=== PATIENT | female | born 1990 | race American Indian/Alaskan Native ===

== ENCOUNTER 2017-02-23 01:44 | Emergency (ER) | payer OTHER ==
[2017-02-23] MEDS ORDERED: TYLENOL PO ONE (05:27)
[2017-02-23 05:32] LABS: Bacteria,Urine 1+ /HPF (Negative); Bilirubin,Urine NEG (Negative); Blood,Urine LG (Negative); Ketones,Urine NEG (Negative); Leukocyte Esterase,Urine LG (Negative); Mucus,Urine FEW /HPF; Nitrite,Urine NEG (Negative); Protein,Urine <15 mg/dL mg/dL (Negative); Urobilinogen,Urine < 2.0 mg/dL (<2.0)
[2017-02-23] MEDS ORDERED: XYLOCAINE 1% MPF 5 mL INFILTRATI ONE (09:17)
[2017-02-23] MEDS ORDERED: ROCEPHIN IM ONE (09:17)
[2017-02-23] MEDS ORDERED: ZITHROMAX PO ONE (09:17)
[2017-02-23 09:18] VITALS: BP 114/75
--- NOTE | 2017-02-23 09:42 | Emergency Department Report ---
Entered by COLIN ASHLEY, acting as scribe for FLIP CALLAHAN PA. ED Abdominal Pain HPI - General Chief Complaint: Abdominal Pain Stated Complaint: PELVIC PAIN Source: patient Mode of arrival: Ambulatory Limitations: No Limitations - History of Present Illness Initial Comments: 26 year old with a PMHx of asthma presents to the ED c/o abdominal pain that began 1 week ago. Patient states that she was called 2 hours [employer] and told that she was exposed to Chlamydia. Rates pain a 7/10 in severity. Associated symptoms include nausea and chills, but she denies vomiting, fever, dysuria, and discharge. LMP 02/23/2017. Complaint: abdominal pain (suprapubic) Onset/Timin -: week(s) Location: suprapubic Radiation: none Migration to: no migration Severity: moderate Severity scale (0 -10): 7 Quality: aching Consistency: constant Improves With: nothing Worsens With: nothing Context: other (exposure to Chlamydia) Associated Symptoms: denies other symptoms, nausea, chills. denies: vomiting, fever, dysuria, other (discharge and bilateral flank pain) - Related Data LMP Date: 02/23/17 LMP (females 10-50): this week Previous Rx's Medication Instructions Recorded Last Taken Type Cyclobenzaprine [Flexeril 10mg] 10 mg PO TID PRN #15 tablet 04/16/15 Unknown Rx Ibuprofen [Motrin] 800 mg PO Q8H PRN #15 tablet 04/16/15 Unknown Rx Ciprofloxacin HCl [Ciprofloxacin 500 mg PO Q12HR #14 tab 02/23/17 Unknown Rx TAB] Allergies Allergy/AdvReac Type Severity Reaction Status Date / Time No Known Allergies Allergy Verified 02/23/17 09:24 ED Review of Systems Comment: All other systems reviewed and negative Constitutional: chills. denies: fever Eyes: denies: eye pain, eye discharge, vision change ENT: denies: ear pain, throat pain Respiratory: denies: cough, shortness of breath, wheezing Cardiovascular: denies: chest pain, palpitations Endocrine: no symptoms reported Gastrointestinal: abdominal pain, nausea. denies: vomiting, diarrhea Genitourinary: denies: dysuria, discharge Musculoskeletal: denies: back pain, joint swelling, arthralgia Skin: denies: rash Neurological: denies: headache, weakness, paresthesias Psychiatric: denies: anxiety, depression Hematological/Lymphatic: denies: easy bleeding, easy bruising ED Past Medical Hx - Past Medical History Previous Medical History?: Yes Hx Asthma: Yes - Surgical History Past Surgical History?: Yes Additional Surgical History: - Social History Smoking Status: Current Every Day Smoker Substance Use Type: None - Medications Home Medications: Home Medications Medication Instructions Recorded Confirmed Last Taken Type Cyclobenzaprine [Flexeril 10mg] 10 mg PO TID PRN #15 tablet 04/16/15 Unknown Rx Ibuprofen [Motrin] 800 mg PO Q8H PRN #15 tablet 04/16/15 Unknown Rx Ciprofloxacin HCl [Ciprofloxacin 500 mg PO Q12HR #14 tab 02/23/17 Unknown Rx TAB] ED Physical Exam - General Limitations: No Limitations General appearance: alert, in no apparent distress - Head Head exam: Present: atraumatic, normocephalic - Eye Eye exam: Present: normal appearance, EOMI Pupils: Present: normal accommodation - ENT ENT exam: Present: normal exam, mucous membranes moist - Neck Neck exam: Present: normal inspection, full ROM - Respiratory Respiratory exam: Present: normal lung sounds bilaterally. Absent: respiratory distress - Cardiovascular Cardiovascular Exam: Present: regular rate, normal rhythm - GI/Abdominal GI/Abdominal exam: Present: soft, tenderness (mild suprapubic tenderness). Absent: distended, guarding, rebound - Extremities Exam Extremities exam: Present: normal inspection, full ROM - Back Exam Back exam: Present: normal inspection, full ROM. Absent: tenderness, CVA tenderness (R), CVA tenderness (L) - Neurological Exam Neurological exam: Present: alert, oriented X3, CN II-XII intact, normal gait - Psychiatric Psychiatric exam: Present: normal affect, normal mood - Skin Skin exam: Present: warm, dry, intact. Absent: rash ED Course Vital Signs 02/23/17 02/23/17 02/23/17 02:14 05:21 09:17 Temperature 99.3 F 98.6 F 98.4 F Pulse Rate 117 H 95 H 85 Respiratory 18 18 18 Rate Blood Pressure 130/79 126/76 Blood Pressure 114/75 [Right] O2 Sat by Pulse 100 100 98 Oximetry ED Medical Decision Making - Medical Decision Making A/P: Cystitis, exposure to STD chlamydia 1-azithromycin, ceftriaxone for empiric treatment of Chlamydia/gonorrhea 2-ciprofloxacin 7 day course for UTI 3-follow up with primary care doctor ED Disposition Clinical Impression: Exposure to STD, Cystitis Disposition: DISCHARGED TO HOME OR SELFCARE Is pt being admited?: No Does the pt Need Aspirin: No Condition: Stable Instructions: Urinary Tract Infection in Women (ED), Chlamydia Infection (ED) Prescriptions: Ciprofloxacin HCl [Ciprofloxacin TAB] 500 mg PO Q12HR #14 tab Referrals: AILIN CROCKETT MD [Staff Physician] - 3-5 Days LISANDRO LOGAN MD [Staff Physician] - 3-5 Days Forms: Accompanied Note, Work/School Release Form(ED) Time of Disposition: 09:27 This documentation as recorded by the DION vega JASMINE,accurately reflects the service I personally performed and the decisions made by ,FLIP CALLAHAN PA.
== END 2017-02-23 10:10 | disposition home or self-care (01) ==
LOC: ED 01:44
DX: N30.90 Cystitis, unspecified without hematuria (principal); J45.909 Unspecified asthma, uncomplicated; F17.200 Nicotine dependence, unspecified, uncomplicated; Z20.2 Contact with and (suspected) exposure to infections with a predominantly sexual mode of transmission
CPT/HCPCS: 81001; 81025; 87591; 96372; 99282; J0696

== ENCOUNTER 2017-08-13 20:24 | Emergency (ER) | payer OTHER ==
[2017-08-13 20:39] VITALS: BP 137/93
[2017-08-13] MEDS ORDERED: DUONEB *Not for PRN Use IH ONE (21:04)
[2017-08-13] MEDS: DUONEB *Not for PRN Use IH ONE (21:10)
[2017-08-13 22:08] LABS: Basophils % (Auto) 0.9 % (0.0-1.8); Eosinophils % (Auto) 5.8 % (0.0-4.3); Hematocrit 35.7 % (30.3-42.9); Hemoglobin 11.9 gm/dl (10.1-14.3); Mean Corpuscular HGB Conc 33 % (30-34); Mean Corpuscular Volume 73 fl (79-97); Platelet Count 261 K/mm3 (140-440); Red Blood Count 4.91 M/mm3 (3.65-5.03); White Blood Count 8.6 K/mm3 (4.5-11.0)
[2017-08-13 22:15] LABS: Anion Gap 17 mmol/L; BUN/Creatinine Ratio 8; Blood Urea Nitrogen 4 mg/dL (7-17); Carbon Dioxide 22 mmol/L (22-30); Chloride 102.2 mmol/L (98-107); Glucose 93 mg/dL (65-100); Potassium 3.7 mmol/L (3.6-5.0); Sodium 137 mmol/L (137-145)
[2017-08-13 22:23] LABS: Mean Corpuscular Hemoglobin 24 pg (28-32); Red Cell Distribution Width 21.1 % (13.2-15.2)
[2017-08-14] MEDS: DUONEB *Not for PRN Use IH ONE (00:15)
--- NOTE | 2017-08-14 07:37 | XRay Report ---
ROUTINE CHEST, TWO VIEWS: HISTORY: Wheezing, shortness of breath. The trachea, heart, mediastinal contour, lung [place] and bony thorax are unremarkable. IMPRESSION: No acute cardiopulmonary process identified.
== END 2017-08-14 04:02 | disposition left against medical advice (07) ==
LOC: ED 20:24
DX: R50.9 Fever, unspecified (principal); Z53.21 Procedure and treatment not carried out due to patient leaving prior to being seen by health care provider
CPT/HCPCS: 36415; 71020; 80048; 84703; 85025; 94640